=== PATIENT | female | born 1960 | race Caucasian/White ===

== ENCOUNTER → 2020-10-06 | Outpatient (CLI) | payer OTHER ==
[~2020-10-06] MED LIST: ALDACTONE 25MG25 MG PO; ATORVASTATIN CA80 MG PO; CARVEDILOL6.25 MG PO; CLOPIDOGREL75 MG PO; ECOTRIN81 MG PO; FEXOFENADINE HC60 MG PO; HUMALOG 10100 UNITS/ SC; HYDROCHLOROTH12.5 M1 PO; ISOSORBIDE MON120 MG PO; LEVOTHYROXINE25 MCG PO; MONTELUKAST SOD10 MG PO; NITROGLYCERIN0.4 MG SL; RANEXA1000 MG PO; VENTOLIN HFA 66.7 GM INH
== END ==
LOC: MAMO 09-30 08:30
DX: Z12.31 Encounter for screening mammogram for malignant neoplasm of breast (principal)
CPT/HCPCS: 77063; 77067

== ENCOUNTER → 2020-10-07 | Day surgery (SDC) | payer OTHER ==
[~2020-10-07] VITALS: Ht 165.1 cm; Wt 137.4 kg
== END | disposition home or self-care (01) ==
LOC: OR 07:15
DX: D12.4 Benign neoplasm of descending colon (principal); B96.81 Helicobacter pylori [H. pylori] as the cause of diseases classified elsewhere; K57.91 Diverticulosis of intestine, part unspecified, without perforation or abscess with bleeding; K29.51 Unspecified chronic gastritis with bleeding; J44.9 Chronic obstructive pulmonary disease, unspecified; I25.10 Atherosclerotic heart disease of native coronary artery without angina pectoris; I10 Essential (primary) hypertension; E78.00 Pure hypercholesterolemia, unspecified; E03.9 Hypothyroidism, unspecified; E66.01 Morbid (severe) obesity due to excess calories; E10.9 Type 1 diabetes mellitus without complications; G47.30 Sleep apnea, unspecified; Z88.2 Allergy status to sulfonamides; Z88.1 Allergy status to other antibiotic agents; Z79.4 Long term (current) use of insulin; Z86.16 Personal history of COVID-19; F17.210 Nicotine dependence, cigarettes, uncomplicated; Z68.43 Body mass index [BMI] 50.0-59.9, adult; Z20.822 Contact with and (suspected) exposure to COVID-19; Z95.5 Presence of coronary angioplasty implant and graft; I25.2 Old myocardial infarction; Z79.82 Long term (current) use of aspirin; K21.9 Gastro-esophageal reflux disease without esophagitis
CPT/HCPCS: 82962; J2001; J2704; J7030